=== PATIENT | male | born 1945 | race Caucasian/White ===

== ENCOUNTER → 2016-09-30 | Outpatient (CLI) | payer MEDICARE ==
[~2016-09-30] MED LIST: DIAZEPAM 10 MG TABLET ONE; EPTIFIBATIDE BOLUS 2,000 MCG/ML 10ML VIAL. IV ONE; FENTANYL PF 100 MCG/2 ML VIAL. ONE; HEPARIN 5,000 UNIT/ML VIAL for PCVC ONE; IODIXANOL 270 MG/ML 100 ML VIAL. ONE; IV NORMAL SALINE 1000ML BAG 1,000 ML ONE; IV NORMAL SALINE 500ML BAG 500 ML ONE; LIDOCAINE 1% Multi-Dose 20 ML VIAL. ONE; MIDAZOLAM HCL 2 MG/2 ML VIAL. ONE
== END | disposition home or self-care (01) ==
LOC: PCVCINTER 07:45
PROVIDERS: ATTEND Nuclear Medicine Nuclear Cardiology
DX: I70.203 Unspecified atherosclerosis of native arteries of extremities, bilateral legs (principal); L97.929 Non-pressure chronic ulcer of unspecified part of left lower leg with unspecified severity; L97.919 Non-pressure chronic ulcer of unspecified part of right lower leg with unspecified severity; I15.0 Renovascular hypertension; I70.1 Atherosclerosis of renal artery; I70.0 Atherosclerosis of aorta; I70.92 Chronic total occlusion of artery of the extremities; I77.9 Disorder of arteries and arterioles, unspecified
CPT/HCPCS: 36252; 37186; 37231; 75716; 76937; C1725; C1751; C1757; C1760; C1769; C1876; C1885; C1894; J1327; J1644; J2250; J3010; J7030; J7040

== ENCOUNTER → 2017-01-09 | Outpatient (CLI) | payer MEDICARE ==
--- NOTE | 2017-01-09 16:11 | PCVCIMAG ---
EXAM: BILATERAL CAROTID DUPLEX INDICATION: Carotid Occlusive Disease. FINDINGS: Doppler Measurements (centimeters per second): RIGHT: Peak CCA-52, Peak ECA-66, Diastolic ICA-20, Peak ICA-57, ICA/CCA Ratio-1.1. LEFT: Peak CCA-57, Peak ECA-61, Diastolic ICA-70, Peak ICA-228, ICA/CCA Ratio-4.0. RIGHT CAROTID: The carotid bulb has minimal plaque. The proximal internal carotid artery shows no significant stenosis. The common carotid artery shows no significant stenosis. The external carotid artery shows no significant stenosis. LEFT CAROTID: The carotid bulb has moderate plaque. The proximal internal carotid artery shows 75% stenosis. The common carotid artery shows no significant stenosis. The external carotid artery shows no significant stenosis. Antegrade flow in both vertebral arteries. IMPRESSION: No significant stenosis of the right internal carotid artery with no significant plaque. 75% stenosis of the left internal carotid artery with moderate plaque. LOC:[place] [id number]
--- NOTE | 2017-01-09 16:32 | PCVCIMAG ---
EXAM: BILATERAL LOWER EXTREMITY ARTERIAL DUPLEX INDICATION: Peripheral Arterial Disease. Leg pain. FINDINGS: Right Leg: Normal arterial waveforms in the common femoral and profunda femoral arteries and throughout the superficial femoral artery and popliteal artery without significant stenosis. Previous stent proximal anterior tibial artery showing good patency. The peroneal arteries and posterior tibial artery are patent. Left Leg: Normal arterial waveforms in the common femoral and profunda femoral arteries and throughout the superficial femoral artery and popliteal artery without significant stenosis. Previous stent in the tibioperoneal trunk maintaining good patency. The peroneal artery and anterior tibial artery remained patent. 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 IMPRESSION: Previous proximal right anterior tibial artery stent maintaining good patency. No flow-limiting stenosis in the right lower extremity. Previous left tibioperoneal trunk stent remains patent. No left SFA or popliteal stenosis. 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 LOC:[id number]
== END | disposition home or self-care (01) ==
LOC: PCVCIMAG 13:53
PROVIDERS: ATTEND Nuclear Medicine Nuclear Cardiology
DX: I73.9 Peripheral vascular disease, unspecified (principal); I77.9 Disorder of arteries and arterioles, unspecified; I10 Essential (primary) hypertension; E11.9 Type 2 diabetes mellitus without complications; I65.22 Occlusion and stenosis of left carotid artery; E78.00 Pure hypercholesterolemia, unspecified; I77.1 Stricture of artery; Z95.5 Presence of coronary angioplasty implant and graft; Z79.899 Other long term (current) drug therapy; Z79.4 Long term (current) use of insulin
CPT/HCPCS: 93880; 93925; G0463